=== PATIENT | female | born 1955 | race Caucasian/White ===

== ENCOUNTER 2022-04-18 11:26 | Emergency (ER) | payer OTHER, MEDICARE, BC ==
[~2022-04-18] VITALS: Ht 172.7 cm; Wt 74.8 kg
[~2022-04-18 11:26] MED LIST: AMITRIPTYLINE H25 MG PO; DOXYCYCLINE HY100 M3 PO; LEVOTHYROXINE75 MCG PO; MACROBID 100 M100 MG PO; NAPROSYN500 MG PO; PROVENTIL HFA6.7 GM INH; PYRIDIUM200 MG PO; SERTRALINE HCL50 MG PO; TOPIRAMATE100 MG PO
== END 2022-04-18 12:47 | disposition home or self-care (01) ==
LOC: ED 11:26
DX: S93.401A Sprain of unspecified ligament of right ankle, initial encounter (principal); S00.212A Abrasion of left eyelid and periocular area, initial encounter; W01.198A Fall on same level from slipping, tripping and stumbling with subsequent striking against other object, initial encounter; G43.909 Migraine, unspecified, not intractable, without status migrainosus; Z88.7 Allergy status to serum and vaccine; Z79.899 Other long term (current) drug therapy
CPT/HCPCS: 70450; 73610; 99284-25